=== PATIENT | male | born 1990 | race Caucasian/White ===

== ENCOUNTER 2020-06-11 16:43 | Emergency (ER) | payer SELFPAY ==
[2020-06-11 16:43] VITALS: BP 108/61; PULSE 130; RESP 21; TEMP 36.7; O2SAT 99; BMI 24.3
--- NOTE | 2020-06-11 17:59 | ED.VISSUMM ---
- ER Visit Summary Date of Service: 06/11/20 Chief Complaint: Left leg wound History of Present Illness: The patient is a 30 M presenting with left leg wound and concern for infection. He states this has been there for awhile. He denies injury. Denies drug use. He has a wound to his left lateral thigh which appears to be secondary to picking of his skin. Denies fever. He states he is anxious. Denies other complaints. Physical Examination: Vitals are stable. HR 130. Patient is afebrile. Alert no acute distress. HEENT exam is unremarkable. Neck is supple. Lungs are clear and equal bilaterally. Heart is regular tachycardic Abdomen is soft nontender nondistended. Extremities 2 cm left thigh wound with no fluctuance. Neurovascular intact distally. Skin is warm and dry. No focal neurologic deficit. Anxious Remainder of exam is unremarkable. Emergency Department Course and Treatment: Patient was given IV fluids. CBC shows white count 11.8. Chemistries unremarkable. Lactic acid 3.5. Patient was given additional IV fluids. He was given Bactrim and Keflex. His repeat heart rate is 95. Repeat lactic acid 1.2. Patient feels much improved. He is given prescription for Bactrim and Keflex. Advised to follow-up with primary care physician. Advised return to ED for worsening complaints. Disposition: Discharge home Impression: Left lower extremity cellulitis This note was generated with [employer] dictation software. It may contain incorrect words, spelling, and punctuation that were not noted in review of the chart prior to signing ED Disposition - Plan for ED Patient: Instructions: ED Cellulitis Prescriptions: Smz/Tmp Ds [Bactrim Ds] 1 tab PO BID #14 tab Prescription Printed Cephalexin [Keflex] 500 mg PO Q6 #40 cap Prescription Printed Referrals: Stacy Flowers MD [STAFF PHYSICIAN] -
[2020-06-11] MEDS: 0.9% Normal Saline 1,000 ML 1000 ML IV (18:40)
[2020-06-11 18:56] LABS: Absolute Lymphocyte Count 1.01 X10^3/uL (0.83-4.51); Absolute Neutrophil Count 9.8 X10^3/uL (2.0-7.7); Basophil# 0.05 X10^3/uL; Basophil% 0.4 % (0-1); Eosinophil# 0.17 X10^3/uL; Eosinophils% 1.4 % (0-5); Hematocrit 38.3 % (40-54); Hemoglobin 13.1 g/dL (13.0-16.5); Lymphocyte # 1.01 X10^3/ul (4.0); Lymphocyte % 8.6 % (19-41); Mean Corp Hgb Conc 34.2 g/dL (32-36); Mean Corpuscular Hgb 29.9 pg (27.0-32.0); Mean Corpuscular Volume 87.4 fL (80-94); Monocyte% 5.9 % (0-10); NRBC Flagged by Analyzer 0 % (0-5); Neutrophil # 9.78 X10^3/uL (2.7-7.7); Neutrophil % 83.1 % (47-70); Platelet Count 348 K/mm3 (150-450); RBC Distribution Width CV 12.3 % (11.6-14.6); RBC Distribution Width SD 39.8 fl (35.1-43.9); Red Blood Count 4.38 M/mm3 (4.6-6.2); White Blood Count 11.8 K/mm3 (4.4-11.0)
[2020-06-11 19:04] LABS: Anion Gap 9 (5-15); BUN 24 mg/dL (7-18); BUN/Creat Ratio 20.3 RATIO (10-20); Calcium,Total 9.4 mg/dL (8.5-10.1); Chloride 106 mmol/L (98-107); Creatinine, Serum 1.18 mg/dL (0.70-1.30); EST Glomerular Filtration Rate 76 mL/min (>60); Est Glom Filt Rate - Afr Amer 92 mL/min (>60); Estimated Creatinine Clearance 89.87 ml/min; Glucose 110 mg/dL (74-106); Potassium 3.5 mmol/L (3.5-5.1); Sodium Level 139 mmol/L (136-145)
[2020-06-11 20:00] VITALS: RESP 20
[2020-06-11 20:01] LABS: Lactic Acid 3.5 mmol/L (0.4-1.9)
[2020-06-11] MEDS: 0.9% Normal Saline 1,000 ML 999 ML IV (20:07)
--- NOTE | 2020-06-11 21:12 | ED.RN ---
pt called RN to room to state he has a watch that he feels is missing. gold with a lot of diamonds. RN noted silver watch on pt's wrist, but pt reports this is not the watch he is missing. [employer] Hand to room to talk with patient.
[2020-06-11 22:20] LABS: Lactic Acid 1.2 mmol/L (0.4-1.9)
[2020-06-11 22:29] VITALS: BP 112/74; PULSE 94; RESP 18; O2SAT 98
--- NOTE | 2020-06-11 22:30 | ED.DEP ---
ED Disposition - Plan for ED Patient: Instructions: ED Cellulitis Prescriptions: Smz/Tmp Ds [Bactrim Ds] 1 tab PO BID #14 tab Prescription Printed Cephalexin [Keflex] 500 mg PO Q6 #40 cap Prescription Printed Referrals: Stacy Flowers MD [STAFF PHYSICIAN] -
[2020-06-11] MEDS: Cephalexin 250 MG Capsule 500 MG PO (22:45)
[2020-06-11] MEDS: Smz/Tmp Ds Tablet 1 TABLET PO (22:45)
[2020-06-11 22:48] LABS: Reflex Lactate? Y
== END 2020-06-11 22:47 | disposition home or self-care (01) ==
LOC: ED 18:01
PROVIDERS: Emergency Provider Emergency Medicine
DX: L03.116 Cellulitis of left lower limb (principal); S71.102A Unspecified open wound, left thigh, initial encounter; X58.XXXA Exposure to other specified factors, initial encounter; Y93.9 Activity, unspecified; Y92.9 Unspecified place or not applicable; Y99.9 Unspecified external cause status
CPT/HCPCS: 80048; 83605; 85025; 96360; 96361; 99284; J7030; A4216